=== PATIENT | female | born 1980 | race Hispanic/Latino ===

== ENCOUNTER 2017-01-26 05:10 | Inpatient (IN) | payer BC ==
--- NOTE | 2017-01-25 18:05 | PDOC.LDHP ---
Labor and Delivery H&P Chief complaint: scheduled section HPI: Pt is a 36yo @ 39 weeks w A1DM and limited PNC the last few weeks of her here for scheduled RCS. Current gestational age (weeks): 39 Due date: 02/01/17 Dating criteria: last menstrual period, first trimester ultrasound Grav: 4 Para: 2 OB History Details: LTCS x 2 Current complications: gestational diabetes (A1DM) Abnormal US findings: No Current medications: pre-cy vitamins Previous surgical history: low tranverse CS (x2) Allergies/Adverse Reactions: Allergies Allergy/AdvReac Type Severity Reaction Status Date / Time No Known Allergies Allergy Verified 03/06/13 18:41 Social history: none - Physical Exam Vital signs reviewed and normal: yes General: NAD, resting Heart: RRR Lungs: CTAB Abdomen: gravid Extremeties: trace edema - OB Labs Blood type: A RH: positive HIV: negative RPR: negative HEPSAg: negative 1 hour GCT: positive 3 hour GTT: positive GBS: negative Urine drug screen: not done - Assessment L&D Assessment: scheduled repeat section - Plan Plan: admit to L&D, to OR for section, informed consent obtained, anesthesia consult for pain management -: Scheduled RCS x 2. Pt desired RRS per office visits and notes, however not approved by ethics committee. Pt aware of need for salpingectomy PP for RRS.
[2017-01-26] MEDS ORDERED: Bicitra 30 ML UDCUP PO SCH (05:18)
[2017-01-26] MEDS ORDERED: Promethazine HCl 25 MG/ML VIAL IM PRN ×3 (05:18→11:24)
[2017-01-26] MEDS ORDERED: Ondansetron HCl/PF 4 MG/2 ML Vial IVP PRN ×4 (05:18→11:24)
[2017-01-26] MEDS ORDERED: Lactated Ringer's 1,000 ML IV SCH ×2 (05:18→11:24)
[2017-01-26 05:47] VITALS: BMI 51.2
[2017-01-26 06:24] LABS: Hematocrit 36.9 % (36.0-47.0); Red Blood Cell (RBC) Count 4.22 mill/uL (4.20-5.40); White Blood Cell (WBC) Count 9.2 thou/uL (4.8-10.8)
[2017-01-26] MEDS ORDERED: Oxytocin 10 UNITS/ML VIAL ONE (07:30)
[2017-01-26] MEDS ORDERED: Naloxone HCl 0.4 mg/ml Vial IVP PRN ×2 (07:43)
[2017-01-26] MEDS ORDERED: Promethazine HCl 25 MG SUPP PR PRN (07:43)
[2017-01-26] MEDS ORDERED: Meperidine HCl/PF 25 MG/ML VIAL SLOW IVP PRN (07:43)
[2017-01-26] MEDS ORDERED: Eucerin (Mineral Oil/Petrolatum,White) 30 gm Jar TOP PRN (07:43)
[2017-01-26] MEDS ORDERED: diphenhydrAMINE HCl 50 MG/ML 1 ML VIAL IVP PRN (07:43)
[2017-01-26] MEDS ORDERED: Ketorolac Tromethamine 30 MG/ML VIAL IVP PRN (07:43)
[2017-01-26] MEDS ORDERED: HYDROmorphone 2 MG/ML VIAL SLOW IVP PRN (07:43)
[2017-01-26] MEDS ORDERED: Naloxone HCl 0.4 mg/ml Vial IV PRN (07:43)
[2017-01-26] MEDS ORDERED: Ketorolac Tromethamine 30 MG/ML VIAL IVP SCH (07:45)
[2017-01-26] MEDS ORDERED: Communication Order-Pharmacy FS SCH (07:45)
[2017-01-26] MEDS ORDERED: PHENYLEPHRINE-NS 100 MCG/ML 10 ML SYRINGE ONE (09:00)
--- NOTE | 2017-01-26 09:03 | PDOC.OPDEL ---
OB Operative/Delivery Note Delivery Dr/Surgeon: Ole Assist: Chelo Pre-Delivery Diagnosis: scheduled section Procedure/Post Delivery Dx: repeat low transverse CS (w Vac assist) - Findings A Sex: male Weight: 7 lb 6 oz - 5 min: 8 - 10 min: 9 - Additional Findings/Plan findings: low transverse hysterotomy without extension, other (tubes and ov not visualized sec to dense scars to uterus and ant abd wall) Estimated blood loss: 1000ml Compilations/Other Findings: dense adhesions anterior abd wall Post delivery plan: routine recovery
[2017-01-26] MEDS ORDERED: Ketorolac Tromethamine 30 MG/ML VIAL ONE (10:00)
[2017-01-26] MEDS ORDERED: Ondansetron HCl/PF 4 MG/2 ML Vial ONE (10:01)
[2017-01-26] MEDS ORDERED: Meperidine HCl/PF 25 MG/ML VIAL ONE (10:15)
[2017-01-26] MEDS ORDERED: LR / Pitocin 40 units/1000 ml 1,000 ML ONE (10:31)
--- NOTE | 2017-01-26 10:34 | OP ---
DATE OF PROCEDURE: 01/26/2017 PREOPERATIVE DIAGNOSES: 1. G4, P2 at 39 weeks. 2. Gestational diabetes. 3. Previous section x2. 4. Maternal obesity. POSTOPERATIVE DIAGNOSES: 1. G4, P2 at 39 weeks. 2. Gestational diabetes. 3. Previous section x2. 4. Maternal obesity. PROCEDURES PERFORMED: 1. Repeat low transverse section. 2. Extensive lysis of adhesions. 3. Vacuum assisted delivery of infant's head through hysterotomy, secondary to maternal obesity and head not engaged. SURGEON: Dez Handy D.O. BOLT HEADER: Farhana Whitney D.O. ANESTHESIA: Spinal per Dr. Chatman. OPERATIVE FINDINGS: 1. Extensive adhesions of the rectus muscles to the anterior aspect of the uterus and peritoneum. 2. Low transverse hysterotomy without extension. 3. Superficial defect in the serosa of the uterus anteriorly just above the hysterotomy site secondary to lysis of adhesions, repaired and hemostatic at the end of the case. 4. Vigorous male , Apgars 8 and 9, weight 7 pounds 6 ounces. 5. Vacuum assisted delivery of head was unengaged. 6. Tubes and ovaries not visualized due to adhesive disease. PROCEDURE IN DETAIL: The patient was taken back to the OR with IV fluids running. Once she was in the OR, spinal anesthesia was obtained and the patient was then placed in dorsal supine position with a left lateral tilt. Rowland catheter was placed using sterile technique. The abdomen was prepped and draped in normal fashion for section. A Pfannenstiel skin incision was made with a scalpel. This was carried down through the subcutaneous tissue until the fascia was reached using Bovie cauterization. Once the fascia was reached, it was incised in the midline and extended superolaterally using curved Patel scissors. Elijah clamps were placed on the superior border of the fascia and the rectus muscles were dissected off the fascia using cauterization , Patel scissors and blunt dissection technique. Once adequate space was created superiorly, the fascia was grasped on the inferior border and dissected down towards the pubic symphysis. The rectus muscles were tented off the abdomen with Allis clamps and a scalpel was used to dissect the rectus abdominis muscles in the midline. The dissection was noted to go directly from the rectus muscles into the uterine serosa. Has no identifiable peritoneal layer was encountered. The next approximate 10 minutes of the procedure were used to dissect adhesive bands between the anterior aspect of the uterus, the lower uterine segment near the bladder from the anterior abdominal wall. Once this was completed in an adequate room, visualization was achieved. A bladder flap was created and the bladder was dissected down away from the planned hysterotomy site. Hysterotomy was made with the scalpel. Intrauterine cavity was bluntly entered and stretched laterally using the Lennon maneuver. An amniotomy was performed with clear fluid noted. Attempts were made to deliver the infant through the hysterotomy with abdominal pressure; however, due to the patient's obese habitus, a vacuum suction cup was applied to the vertex to facilitate delivery through the hysterotomy. Once this was accomplished, the infant was then delivered. The infant's body was then delivered through the hysterotomy without any difficulty. The nose and mouth were suctioned. The cord was doubly clamped and cut and the infant was handed off to special care nurses in attendance. Cord blood was collected. The placenta was delivered. The uterus was exteriorized with the majority of the fallopian tubes seen; however, the ovaries not well visualized. The uterus was cleaned of clot and debris and returned to the abdominal cavity. The hysterotomy was closed using Monocryl suture in a running locked fashion. After the hysterotomy was closed, it was noted to be hemostatic. A serosal defect approximately 2 x 3 cm superior to the hysterotomy was reapproximated with 2-0 Monocryl suture. Bovie cauterization was used where needed and hemostasis was noted. A layer of Surgicel was placed over this area in the hysterotomy for hemostasis and hopefully to decrease adhesive disease during the healing process. All instruments were removed including Mariano retractor that had been placed prior to the hysterotomy. The fascia and rectus muscles were inspected and no areas of bleeding were noted. The fascia was closed with PDS suture in a running fashion from corner to corner and tied in the midline. Plain gut suture was used to reapproximate the subcutaneous tissue. [place] were used to reapproximate the skin and a Prevena wound VAC was placed over the incision for a protective dressing. The patient's uterus was noted to be firm. She tolerated the procedure well and was transferred to recovery room in good condition. CLIFFORD
[2017-01-26] MEDS ORDERED: Adacel (T-DAP) 0.5 ML VIAL IM ONE (11:24)
[2017-01-26] MEDS ORDERED: LR w/ Pitocin 40 units/1000 ML BAG IV SCH (11:24)
[2017-01-26] MEDS ORDERED: diphenhydrAMINE HCl 25 MG CAP PO PRN (11:24)
[2017-01-26] MEDS ORDERED: Lanolin Ointment 7 GM TUBE TOP PRN (11:24)
[2017-01-26] MEDS ORDERED: Bisacodyl 10 MG SUPP PR PRN (11:24)
[2017-01-26] MEDS ORDERED: Ferrous Sulfate 325 MG TAB PO SCH (12:00)
[2017-01-26] MEDS ORDERED: LR / Pitocin 40 units/1000 ml 1,000 ML IV SCH (12:00)
[2017-01-26] MEDS ORDERED: Prenatal Vitamin 1 TAB PO SCH (12:00)
[2017-01-26] MEDS ORDERED: Docusate (Surfak) 240 MG CAP PO SCH (12:00)
[2017-01-26] MEDS: Ferrous Sulfate 325 MG TAB PO SCH (14:25)
[2017-01-26] MEDS ORDERED: Meperidine HCl/PF 25 MG/ML VIAL IM PRN (19:45)
[2017-01-26] MEDS ORDERED: Acetaminophen/Codeine 30-300mg Tablet PO PRN (19:45)
[2017-01-26] MEDS: Docusate (Surfak) 240 MG CAP PO SCH (22:34)
[2017-01-27 05:16] LABS: Hematocrit 30.9 % (36.0-47.0); Mean Platelet Volume 9.3 fL (7.4-10.4); White Blood Cell (WBC) Count 9.9 thou/uL (4.8-10.8)
--- NOTE | 2017-01-27 08:15 | PDOC.PP ---
Post Progress Note Post Day #: 1 -: doing well, min pain, no concerns, eating PO intake tolerated: yes Flatus: yes Ambulation: yes Vital Signs (12 hours) Temp Pulse Resp BP Pulse Ox 01/27/17 07:10 98.1 F 71 18 109/57 L 01/27/17 03:10 98.3 F 56 L 18 110/56 L 01/27/17 00:06 98.0 F 61 18 112/56 L 97 Weight Weight 280 lb - Physical Examination General: NAD Respiratory: clear to ausculation bilateral Abdominal: no distention, appropriately TTP Deviation from normal: below umb Extremities: negative homans (B) Skin: no rash (preevena on) Neurological: no gross focal deficits Psychiatric: A&Ox3 Result Diagrams: 01/27/17 04:15 Additional Labs: Post Labs Blood Type A POSITIVE 01/26/17 06:13 Hep Bs Antigen Non-Reactive S/CO (NonReactive) 01/26/17 06:13 (1) S/P repeat low transverse Code(s): Z98.891 - HISTORY OF UTERINE SCAR FROM PREVIOUS SURGERY Status: Acute - Assessment/Plan POD1, doing well, poss DC tomorrow vs Wed.
[2017-01-27] MEDS: Ferrous Sulfate 325 MG TAB PO SCH ×2 (08:43→09:52)
[2017-01-27] MEDS: Simethicone Chewable 80 MG TAB PO PRN ×2 (08:44→21:57)
[2017-01-27] MEDS: Prenatal Vitamin 1 TAB PO SCH (08:44)
[2017-01-27] MEDS: Docusate (Surfak) 240 MG CAP PO SCH ×2 (08:44→21:57)
[2017-01-27] MEDS: Acetaminophen/Codeine 30-300mg Tablet PO PRN ×2 (13:14→14:34)
[2017-01-27] MEDS: Ibuprofen 800 MG TAB PO SCH ×2 (13:15→21:58)
--- NOTE | 2017-01-27 14:20 | ADD-OP ---
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
[2017-01-28] MEDS: Simethicone Chewable 80 MG TAB PO PRN (06:01)
[2017-01-28] MEDS: Ibuprofen 800 MG TAB PO SCH (06:01)
[2017-01-28 08:06] VITALS: BP 143/69; TEMP 97.7
--- NOTE | 2017-01-28 09:08 | PDOC.PP ---
Post Progress Note Post Day #: 2 -: doing well, no concerns, discussed breast feeding S2S PO intake tolerated: yes Flatus: yes Ambulation: yes Vital Signs (12 hours) Temp Pulse Resp BP 01/28/17 08:05 97.7 F 62 20 143/69 H 01/28/17 08:00 97.7 F 62 20 01/28/17 04:07 98.2 F 68 18 142/63 H Weight Weight 280 lb - Physical Examination General: NAD Respiratory: clear to ausculation bilateral Abdominal: no distention Fundus firm & at: diff to assess due to habitus Extremities: negative homans (B) Skin: no rash Neurological: no gross focal deficits Psychiatric: normal affect Result Diagrams: 01/27/17 04:15 Additional Labs: Post Labs Blood Type A POSITIVE 01/26/17 06:13 Hep Bs Antigen Non-Reactive S/CO (NonReactive) 01/26/17 06:13 (1) S/P repeat low transverse Code(s): Z98.891 - HISTORY OF UTERINE SCAR FROM PREVIOUS SURGERY Status: Acute - Assessment/Plan POD #2 doing well, no concerns. Discussed office visit Thursday for removal of Preveena and brittney as well as BP check.
[2017-01-28] MEDS: Docusate (Surfak) 240 MG CAP PO SCH (09:30)
[2017-01-28] MEDS: Ferrous Sulfate 325 MG TAB PO SCH (09:30)
[2017-01-28] MEDS: Prenatal Vitamin 1 TAB PO SCH (09:30)
== END 2017-01-28 13:30 | disposition home or self-care (01) | DRG 765 ==
LOC: L&D 05:10 → 3SW 11:12
PROVIDERS: ADMIT Obstetrics & Gynecology; ATTEND Obstetrics & Gynecology
PROC: 10D00Z1 Extraction of Products of Conception, Low, Open Approach (ICD-10-PCS; principal; 2017-01-26)
PROC: 0UN90ZZ Release Uterus, Open Approach (ICD-10-PCS; 2017-01-26)
PROC: 10907ZC Drainage of Amniotic Fluid, Therapeutic from Products of Conception, Via Natural or Artificial Opening (ICD-10-PCS; 2017-01-26)
DX: O99.214 Obesity complicating childbirth (principal); Z68.43 Body mass index [BMI] 50.0-59.9, adult; E66.8 Other obesity; O24.429 Gestational diabetes mellitus in childbirth, unspecified control; O34.211 Maternal care for low transverse scar from previous cesarean delivery; O99.89 Other specified diseases and conditions complicating pregnancy, childbirth and the puerperium; N73.6 Female pelvic peritoneal adhesions (postinfective); Z3A.39 39 weeks gestation of pregnancy; Z37.0 Single live birth
CPT/HCPCS: 36415; 36416; 85027; 86780; 86850; 86900; 86901; 87340; J1885; J2175; J2274; J2405; J2590

== ENCOUNTER 2017-02-02 14:24 | Emergency (ER) | payer BC ==
[2017-02-02 15:27] LABS: #Eosinphils 0.1 thou/uL (0.0-0.7); #Lymphocytes 1.2 thou/uL (1.20-3.40); #Monocytes 0.6 thou/uL (0.11-0.59); #Neutrophils 10.3 thou/uL (1.40-6.50); %Eosinophils 0.8 % (0.0-10.0); %Lymphocytes 9.9 % (21.0-51.0); %Monocytes 4.8 % (0.0-10.0); Hematocrit 36.4 % (36.0-47.0); Mean Platelet Volume 8.1 fL (7.4-10.4); Red Blood Cell (RBC) Count 4.13 mill/uL (4.20-5.40); White Blood Cell (WBC) Count 12.2 thou/uL (4.8-10.8)
[2017-02-02 15:42] LABS: Lactic Acid - Sepsis 0.7 mmol/L (0.5-2.2)
[2017-02-02 15:50] LABS: ALT (SGPT) 9 U/L (8-55); AST (SGOT) 12 U/L (5-34); Alkaline Phosphatase 75 U/L (40-150); Anion Gap 15 mmol/L (10-20); BUN (Urea Nitrogen) 9 mg/dL (7.0-18.7); Bilirubin, Total 0.6 mg/dL (0.2-1.2); CK (CPK) 50 U/L (29-168); Calc. Creatinine Clearance 0 mL/min (70-130); Calcium 9.3 mg/dL (7.8-10.44); Carbon Dioxide 21 mmol/L (22-29); Chloride 105 mmol/L (98-107); Estimated GFR-MDRD Greater than 90; Globulin 3.7 g/dL (2.4-3.5); Protein, Total 7.3 g/dL (6.0-8.3)
[2017-02-02] MEDS ORDERED: ISOVUE-370 76%-LOCM 1 ML ONE (17:18)
--- NOTE | 2017-02-02 18:41 | CT ---
CT ABDOMEN WITH IV CONTRAST CT PELVIS WITH IV CONTRAST Date: 02-02-17 History: Left upper abdominal pain. Patient is one week post-. FINDINGS: Lung bases are clear aside from minimal atelectasis. There is no pneumothorax or pleural effusion se en. The liver, spleen, pancreas, bilateral adrenal glands, and abdominal aorta demonstrate a normal CT a ppearance. There is a punctate nonobstructing calculus in the superior pole right kidney with several small lef t renal calculi present, the largest measuring approximately 8 mm. A subcentimeter too small to iggy acterize hypodense lesion seen in the lateral aspect mid portion of the left kidney. The uterus is enlarged. This is probably related to patient's post- state. Punctate focus of g as is seen in the endometrial canal, likely related to post-surgical changes. Patient is post caesar edi section one week ago. There is fluid and stranding inferior and anterior to the uterus as well a s stranding in the subcutaneous soft tissues, all of which is most likely attributable to post-partu m changes. There is mild mass effect on the inferior aspect of the urinary bladder related to enlarg ed of the uterus. There is no fluid collection seen to suggest an abscess. Degenerative changes are seen in the region of the thoracolumbar spine which are progressed for thomas ent's age. In addition, there is bilateral hip osteoarthritis, greater involving the medial aspect o f the right hip which is also advanced for patient's age. This does not appear to represent a vascul ar necrosis. IMPRESSION: 1. Post- state of the uterus with stranding and fluid in the anterior aspect of the abdomen an d mild prominence of the right psoas muscle. There is no active extravasation to suggest active blee ding. Findings are likely related to post-surgical changes from recent caesarian section with probab le small hematoma involving the inferior aspect of the right rectus abdominus muscle. Small amount o f free fluid in the abdomen as well as stranding in the subcutaneous soft tissues, also likely attri butable to post- state. 2. Focus of gas in the endometrial canal which may be related to prior post-surgical change as well. 3. Non-obstructing bilateral renal calculi. 4. No fluid collection seen to suggest an abscess. 5. Bilateral hip osteoarthritis and degenerative changes in the lumbar spine, each of which is advan nicky for patient's age. 6. Above findings discussed with Dr. Franklin in the Emergency Department on 02-02-17 at 1606 hours. POS: [facility]
== END 2017-02-02 17:50 | disposition home or self-care (01) ==
LOC: ERS 14:24
DX: O99.89 Other specified diseases and conditions complicating pregnancy, childbirth and the puerperium (principal); R10.12 Left upper quadrant pain; R10.11 Right upper quadrant pain
CPT/HCPCS: 74177; 80053; 82550; 83605; 85025

== ENCOUNTER 2017-06-04 16:45 | Outpatient (CLI) | payer BC | END 2017-06-04 16:46 | disposition home or self-care (01) | LOC: BICRAD 16:45 | PROVIDERS: ATTEND Family Medicine | DX: R05 Cough (principal); R50.9 Fever, unspecified | CPT/HCPCS: 71046 ==